=== PATIENT | male | born 1950 | race Hispanic/Latino ===

== ENCOUNTER 2017-09-16 09:37 | Outpatient (CLI) | payer OTHER | END 2017-09-16 09:38 | disposition home or self-care (01) | LOC: BICULT 09:37 | PROVIDERS: ATTEND Family Medicine | DX: I10 Essential (primary) hypertension (principal); R10.32 Left lower quadrant pain; J98.4 Other disorders of lung; K76.0 Fatty (change of) liver, not elsewhere classified; K76.89 Other specified diseases of liver | CPT/HCPCS: 71046; 76700 ==

== ENCOUNTER 2017-09-21 08:55 | Day surgery (SDC) | payer MEDICARE, MEDICAID ==
[2017-09-20 16:11] VITALS: BMI 27.1
--- NOTE | 2017-09-21 07:16 | HP ---
DATE OF ADMISSION: 09/21/2017 HISTORY OF PRESENT ILLNESS: This is a 66-year-old male referred to me by Dr. Yan for evaluation of dysphagia and abdominal pain. The patient has dysphagia to solid foods over the last several week s. He also complains of abdominal pain. The patient . The pain started on 09/06/2017 and was localized. He has no fever, no nausea, no vomiting. He has no other relevant symptoms. His bowel m ovements are fairly regular. The patient was treated with ciprofloxacin by Dr. Yan and his sympt oms are markedly improved. The patient comes in for a colonoscopy and EGD, because of abdominal pain and dysphagia. ALLERGIES: PENICILLIN. SOCIAL HISTORY: Quit smoking and drinking alcohol in the past. MEDICAL ILLNESS: 1. Hypertension. 2. Hyperlipidemia. 3. Depression, anxiety. 4. Chronic back pain. 5. Acid reflux. PHYSICAL EXAMINATION: VITAL SIGNS: Pulse is 70, blood pressure 130/80. HEENT: Conjunctivae clear. LUNGS: Within normal limits. ABDOMEN: Soft to palpate. Abdomen is tender over the left lower quadrant. There is no rebound or g uarding. Bowel sounds are normal. ADMITTING DIAGNOSES: 1. Dysphagia. 2. Abdominal pain. FAMILY HISTORY: Colon cancer. Two of family members have colon cancer. PLAN: EGD and colonoscopy.
--- NOTE | 2017-09-21 10:38 | OP ---
DATE OF PROCEDURE: 09/21/2017 OPERATIVE PROCEDURE: Colonoscopy. PREOPERATIVE DIAGNOSIS: A 66-year-old male with strong family history of colon cancer . The patient had two family members of colon cancer. The patient had abdominal pain over the left lower quadrant. The patient is undergoing colonoscopy. POSTOPERATIVE DIAGNOSES: Hemorrhoids. Otherwise, normal colonoscopy. The patient did have some ret ained fecal material, which has been washed out. PROCEDURE IN DETAIL: The patient was placed on his left lateral position and was given sedation by A [facility]. A rectal exam was done before the scope was advanced into the rectum. No lesi ons were felt on rectal exam. A Pentax video colonoscope was introduced into the rectum and advanced all the way into the cecum. The patient had retained fecal material throughout the colon. Water wa s used to irrigate and wash out. The mucosa appeared normal throughout the colon. The appendiceal o rifice, ileocecal valve, and cecum, no pathology seen. Withdrawal of scope from the cecum, ascending colon and hepatic flexure, no pathology seen. The transverse colon, splenic flexure, descending col on, and sigmoid colon, no lesions seen. Rectum showed hemorrhoids.
[2017-09-21] MEDS ORDERED: Lidocaine 1% PF 5 ML VIAL ONE (14:29)
--- NOTE | 2017-09-21 15:44 | OP ---
DATE OF PROCEDURE: 09/21/2017 OPERATIVE PROCEDURES: 1. Esophagogastroduodenoscopy with biopsy. 2. Esophageal dilation with a 50-Filipino Marcelino dilator. PREOPERATIVE DIAGNOSIS: Dysphagia. POSTOPERATIVE DIAGNOSES: 1. No esophageal stricture seen. 2. Hiatus hernia. 3. Diffuse gastritis. PROCEDURE IN DETAIL: The patient was placed on his left lateral position and was given sedation by A nesthesia Department. A Pentax video gastroscope under direct vision was passed down the oropharynx, past the gastroesophageal junction, into the stomach and subsequently into the descending duodenum. The vocal cords appeared healthy. Although the patient complains of dysphagia, at endoscopy, no eso phageal narrowing seen. The patient had a moderate size of hiatus hernia. Retroflexion failed to sh ow any lesions in the fundus or cardia. The gastric body and antrum shows diffuse gastritis. Biopsi es were obtained from the gastric antrum and gastric body. The duodenal bulb and descending duodenum , no pathology seen. The stomach was decompressed and the scope removed. Because of history of dysp hagia, a 50-Fil[place]ino Marcelino dilator was passed down with no resistance. DISCHARGE PLANNING: This is a 66-year-old male who came in for an EGD because of the severe dysphagi a, abdominal pain, and strong family history of colon cancer. The EGD showed gastritis and hiatus he rnia. The colonoscopy was basically negative. DISCHARGE RECOMMENDATIONS: 1. The patient advised to call me if he develops abdominal pain, hematochezia, or fever. 2. In the absence of any of the symptoms, the patient will come back to me in 2 weeks.
== END 2017-09-21 11:30 | disposition home or self-care (01) ==
LOC: SDC 08:55
PROVIDERS: ATTEND Internal Medicine Gastroenterology
PROC: 0DJD8ZZ Inspection of Lower Intestinal Tract, Via Natural or Artificial Opening Endoscopic (ICD-10-PCS; principal; 2017-09-21)
PROC: 0DB68ZX Excision of Stomach, Via Natural or Artificial Opening Endoscopic, Diagnostic (ICD-10-PCS; 2017-09-21)
PROC: 0D758ZZ Dilation of Esophagus, Via Natural or Artificial Opening Endoscopic (ICD-10-PCS; 2017-09-21)
DX: K29.50 Unspecified chronic gastritis without bleeding (principal); K44.9 Diaphragmatic hernia without obstruction or gangrene; K64.9 Unspecified hemorrhoids; K21.9 Gastro-esophageal reflux disease without esophagitis; I10 Essential (primary) hypertension; E78.5 Hyperlipidemia, unspecified; F32.9 Major depressive disorder, single episode, unspecified; F41.9 Anxiety disorder, unspecified; G89.29 Other chronic pain; Z88.0 Allergy status to penicillin; Z80.0 Family history of malignant neoplasm of digestive organs
CPT/HCPCS: 88305; 88312; J2001

== ENCOUNTER 2017-10-06 09:47 | Outpatient (CLI) | payer MEDICARE, MEDICAID ==
--- NOTE | 2017-10-06 12:28 | RAD ---
ESOPHOGRAM: Date: 10-06-17 History: Dysphagia. Patient has difficulty swallowing. [employer] chest x-ray compared to 02-03-09. FINDINGS: Metallic like foreign bodies again overlie the posterior aspect of the mid and upper chest. Cardiac s ilhouette and pulmonary vasculature are within normal limits. Linear densities are seen at the lung b ase which may be related to mildly prominent interstitial lung changes. There is persistent blunting of the left lateral costophrenic angle likely related to pleural and parenchymal scarring given stabi lity since prior exam. Lungs are otherwise clear. Vascular calcifications are seen in the thoracic ao rta. ESOPHOGRAM: A double contrast esophogram was performed in the usual fashion. Patient demonstrates normal esophage al peristalsis. No tertiary contracts were demonstrated during the exam. Esophagus demonstrates a nor mal appearance without evidence of a mucosal irregularity. No focal area of persistent narrowing is s een. A 12.5 mm barium tablet was administered during the exam which traverses the GE junction without holdup. There is no evidence of a hiatal hernia. IMPRESSION: 1. Normal esophogram without focal narrowing or mucosal irregularity seen in the esophagus. A 0.5 mm barium tablet was administered during the exam which traverses the esophagus freely and without holdu p. POS: [facility]
== END 2017-10-06 09:48 | disposition home or self-care (01) ==
LOC: RAD 09:47
PROVIDERS: ATTEND Internal Medicine Gastroenterology
DX: R13.10 Dysphagia, unspecified (principal)
CPT/HCPCS: 74220

== ENCOUNTER 2018-07-15 15:33 | Outpatient (CLI) | payer MEDICARE, MEDICAID ==
--- NOTE | 2018-07-15 16:37 | ULT ---
RENAL ULTRASOUND: 07/15/18 HISTORY: Hematuria. COMPARISON: None. TECHNIQUE: Sagittal and transverse imaging of the kidneys performed. FINDINGS: RIGHT KIDNEY: Normal cortical echotexture. No hydronephrosis. Right kidney measures 5.3 x 5.1 x 10.4 cm. LEFT KIDNEY: There is mild hydronephrosis with dilatation of the pelvis and lower pole collecting system. Left kid bernarda measures 7.7 x 11.3 x 8.2 cm. Cortex has a normal echotexture. The urinary bladder is unremarkable with a 107 mL volume. IMPRESSION: Mild left sided hydronephrosis. POS: [facility]
--- NOTE | 2018-07-15 17:36 | RAD ---
LUMBAR SPINE RADIOGRAPHS TWO VIEWS: 07/15/18 PROVIDED CLINICAL HISTORY: Back pain. FINDINGS: Five nonribbearing lumbar type vertebral bodies are present. There is grade I anterolisthesis of L5 o n S1. Lumbar alignment appears otherwise normal. Diffuse disc space height loss and end plate degener ative change most conspicuously effecting L4-5 and L5-S1. Pedicles appear intact. Vascular calcificat ions are seen. Vertebral body heights appear preserved. IMPRESSION: Lower lumbar spine degenerative change. POS: [facility]
--- NOTE | 2018-07-15 17:42 | RAD ---
PELVIC RADIOGRAPH: 07/15/18 PROVIDED CLINICAL HISTORY: Pelvic pain. There is no evidence for fracture or other acute osseous abnormality. Alignment appears anatomic. Kanwal nt spaces appear preserved. IMPRESSION: No evidence for an acute osseous abnormality or significant facet arthropathy. POS: [facility]
--- NOTE | 2018-07-15 17:43 | RAD ---
KUB: 07/15/18 PROVIDED CLINICAL HISTORY: Left lower quadrant pain. FINDINGS: The abdominal bowel gas pattern is nonspecific. No radiographically apparent urinary tract calculi. V ascular calcifications overlie the pelvis. IMPRESSION: Nonspecific bowel gas pattern. POS: [facility]
== END 2018-07-15 15:34 | disposition home or self-care (01) ==
LOC: BICULT 15:33
PROVIDERS: ATTEND Family Medicine
DX: M79.605 Pain in left leg (principal); I11.0 Hypertensive heart disease with heart failure; R31.9 Hematuria, unspecified; R10.32 Left lower quadrant pain; M47.816 Spondylosis without myelopathy or radiculopathy, lumbar region; N13.30 Unspecified hydronephrosis; I50.9 Heart failure, unspecified
CPT/HCPCS: 72100; 72170; 74018; 76770

== ENCOUNTER 2020-03-11 14:34 | Outpatient (CLI) | payer MEDICARE, MEDICAID ==
--- NOTE | 2020-03-11 14:54 | RAD ---
Exam: XR Knee Rt 4 View STANDARD HISTORY: Right knee pain. Patient fell 3 weeks ago. Patient states anterior knee pain. COMPARISON: None FINDINGS: Osteophytes are seen involving the medial joint compartment. There is minimal medial joint space narr owing. No acute fracture, dislocation, or other acute osseous abnormality is identified. IMPRESSION: 1. No acute osseous abnormality right knee. 2. Mild osteoarthritis involving the medial joint compartment.
== END 2020-03-11 14:35 | disposition home or self-care (01) ==
LOC: BICRAD 14:34
PROVIDERS: ATTEND Family Medicine
DX: S89.91XA Unspecified injury of right lower leg, initial encounter (principal); M25.561 Pain in right knee; M17.11 Unilateral primary osteoarthritis, right knee